=== PATIENT | female | born 1990 | race Caucasian/White ===

== ENCOUNTER 2025-04-13 20:05 | Emergency (ER) | payer SELFPAY ==
[~2025-04-13] VITALS: Ht 177.8 cm; Wt 68.0 kg
[2025-04-13] MEDS ORDERED: Acetaminophen/Hydrocodone 5 MG/325 MG TABLET PO ONE (20:25)
[2025-04-13] MEDS ORDERED: Tdap Vaccine 0.5 ML SYR (Adult Vaccine) IM ONE (20:25)
[2025-04-13] MEDS ORDERED: Amoxicillin/Clavulanate Pota 875 MG TAB PO ONE (20:25)
[2025-04-14] MEDS ORDERED: AMOX-CLAV 875-1 EACH PO (10:29)
== END 2025-04-13 21:24 | disposition home or self-care (01) ==
LOC: ED 20:05
DX: S61.452A Open bite of left hand, initial encounter (principal); W54.0XXA Bitten by dog, initial encounter; Y93.89 Activity, other specified; Y92.89 Other specified places as the place of occurrence of the external cause; Y99.8 Other external cause status